=== PATIENT | female | born 1990 | race Caucasian/White ===

== ENCOUNTER 2016-04-30 13:23 | Emergency (ER) ==
[2016-04-30] MEDS ORDERED: DUONEB (A & A) INH ONE (13:53)
--- NOTE | 2016-04-30 13:57 | PROVIDER DOCUMENTATION ---
HPI-Respiratory General - General Chief Complaint: Cold Symptoms Stated Complaint: FLU SX Time Seen by Provider: 04/30/16 13:46 Source: patient Allergies/Adverse Reactions: Patient Allergies Allergy/AdvReac Type Severity Reaction Status Date / Time No Known Allergies Allergy Verified 04/30/16 13:48 Home Medications: Home Medication List Medication Instructions Recorded Confirmed Last Taken Type Amoxicillin [Amoxil] 875 mg PO BID #14 tablet 04/30/16 Unknown Rx Guaifenesin/Pseudoephedrne HCl 1 each PO BID #30 tab.er.12h 04/30/16 Unknown Rx [Mucinex D ER Tablet] - History of Present Illness-Resp Nature of Presenting Problem: 25 y/o F c/o cough, congestion, fever, sore throat x 1 week, worse in last 24 hours. Pt states cough is productive of yellow/green mucus. States fever as high as 103F at home. Denies influenza vaccine; states children sick with cough recently. Reports no abd. pain, N/V/C, but states 2 episodes of diarrhea today. Review of Systems - Adult - REVIEW OF SYSTEMS - ADULT Constitutional: reports: see HPI, fever. denies: chills Eyes: reports: no symptoms reported. denies: blurred vision, double vision Ears, Nose, Mouth & Throat: reports: see HPI, throat pain. denies: ear pain, nose pain Cardiovascular: reports: no symptoms reported. denies: chest pain, palpitations Respiratory: reports: see HPI, cough, wheezing. denies: dyspnea on exertion, shortness of breath Gastrointestinal: reports: see HPI, diarrhea. denies: abdominal pain, nausea, vomiting Genitourinary: reports: no symptoms reported. denies: dysuria, frequency Musculoskeletal: reports: muscle aches. denies: joint pain, joint swelling Integumentary: reports: no symptoms reported. denies: nail changes, rash Neurological: reports: no symptoms reported. denies: headache/migraines, numbness, paresthesia Psychiatric: reports: no symptoms reported Endocrine: reports: no symptoms reported. denies: cold intolerance, heat intolerance Hematologic/Lymphatic: reports: no symptoms reported. denies: easy bruising, prolonged bleeding Allergic/Immunologic: reports: no symptoms reported All Other Systems: Reviewed and Negative Past History - Adult - PAST MEDICAL HISTORY-ADULT Review of Records: reports: Nursing Assessment Review, Medications Reviewed Major Childhood Illnesses: reports: denies history Cardiovascular: reports: denies history Respiratory: reports: denies history Gastrointestinal: reports: denies history Obstetrical/Gynecological: reports: denies history Genitourinary: reports: denies history Musculoskeletal: reports: denies history Neurological: reports: denies history Endocrine/Immune: reports: denies history Other Conditions: reports: denies history - PRIOR SURGERIES/PROCEDURES Surgical/Procedure History: reports: BTL, , tonsillectomy - IMMUNIZATION STATUS Childhood Immunizations: See Nurse Assessment Flu Vaccine: See Nurse Assessment - FAMILY HISTORY Family History: reviewed, not pertinent - SOCIAL HISTORY Smoking: quit greater than 1 year Physical Exam-General - PHYSICAL EXAM-ADULT Initial Vital Signs Reviewed: Yes - CONSTITUTIONAL General Appearance: alert, mild distress, thin - EYES Eyes: pink conjunctivae - HEAD, EARS, NOSE, MOUTH & THROAT HENMT: normocephalic/atraumatic, moist mucous membranes, pharyngeal erythema. negative: tonsillar exudate - NECK Neck: supple, normal inspection. negative: lymphadenopathy - RESPIRATORY Respiratory: no respiratory distress, no accessory muscle use, rhonchi, wheezing . negative: crackles, rales - CARDIOVASCULAR Cardiovascular: regular rate, rhythm. negative: bradycardia, tachycardia - GASTROINTESTINAL (ABDOMEN) Abdominal Exam: normal bowel sounds, non tender, soft. negative: distended, guarding, rigid - LYMPHATIC Lymphatic: no adenopathy - MUSCULOSKELETAL Back Exam: normal inspection Extremity: normal gait - SKIN Integumentary: normal color, normal turgor, warm/dry - NEUROLOGIC Neurologic: negative: aphasia - PSYCHIATRIC Psych/Mental Status: normal mood/affect, normal thought content, normal thought process, oriented x 3 Progress - PLAN OF CARE/RESULTS Progress/Plan/Lab Results: Orders Category Date Time Status CHEST-2 VIEWS [RAD] Stat Exams 04/30/16 13:52 Draft Flu Swab [INFLUENZA SCREEN A/B] Stat Lab 04/30/16 13:30 Completed Albuterol 2.5MG/Ipratrop 0.5MG [Duoneb (A & A)] Med 04/30/16 13:53 Discontinued 6 ml INH NOW ONE Dexamethasone [Decadron] Med 04/30/16 14:48 Discontinued 10 mg IM NOW ONE Aerosol Treatments Routine Oth 04/30/16 13:53 Completed Aerosol Treatments Stat Oth 04/30/16 13:53 Completed Orders Category Date Time Status CHEST-2 VIEWS [RAD] Stat Exams 04/30/16 13:52 Draft Flu Swab [INFLUENZA SCREEN A/B] Stat Lab 04/30/16 13:30 Completed Albuterol 2.5MG/Ipratrop 0.5MG [Duoneb (A & A)] Med 04/30/16 13:53 Discontinued 6 ml INH NOW ONE Dexamethasone [Decadron] Med 04/30/16 14:48 Discontinued 10 mg IM NOW ONE Aerosol Treatments Routine Oth 04/30/16 13:53 Completed Aerosol Treatments Stat Oth 04/30/16 13:53 Completed Vital Signs Temp Pulse Resp BP Pulse Ox 04/30/16 15:05 80 18 130/78 100 04/30/16 14:06 78 14 95 04/30/16 13:29 97.7 F 82 18 139/84 100 No Known Allergies Allergy (Verified 04/30/16 13:48) Amoxicillin [Amoxil] 875 mg PO BID #14 tablet 04/30/16 Guaifenesin/Pseudoephedrne HCl [Mucinex D ER Tablet] 1 each PO BID #30 tab.er.12h 04/30/16 Discussed results and medication use with pt. - XRAY 1 XRAY Study: Chest XRAY Interpretation: No PNA Departure - Departure Time of Disposition Order: 14:47 DIAGNOSIS: URI (upper respiratory infection) Qualifiers: URI type: unspecified URI Qualified Code(s): J06.9 - Acute upper respiratory infection, unspecified Disposition: HOME 01 Certified Medical Emergency: Emergent Condition: Stable Additional Instructions: Take medications as directed. Follow up with PCP in 5-7 days for recheck. Tylenol/motrin for fever/body aches, as needed. ED Follow Up Instructions: You have been treated by a care provider in the Emergency Department. These instructions are being provided to you so you can have an understanding of how to care for yourself upon discharge. Upon discharge from the Emergency Department, you are responsible for making arrangements for follow-up care by a physician of your choice. Take all prescribed medications as directed. Return to the Emergency Department immediately for any new or worsening symptoms. You may call the Physician Referral phone number at [phone] to obtain a list of Physicians who are taking new patients. Prescriptions: Amoxicillin [Amoxil] 875 mg PO BID #14 tablet Guaifenesin/Pseudoephedrne HCl [Mucinex D ER Tablet] 1 each PO BID #30 tab.er.12h Referrals: Clemente Evans [Primary Care Provider] - Forms: Return to School/Parent Work Instructions: Upper Respiratory Infection, Adult, [id number] Attestation - Physician/ ALEX Attestation Patient care was provided by Advanced Practice Provider:: Yes Advanced Practice Provider:: Jessica Forman Advanced Practice Provider documentation review:: The Mid-level provider documentation, treatment plan and medical decision making was reviewed by the physician who agrees with all treatment and medical decision making by the MLP.
[2016-04-30] MEDS ORDERED: DECADRON IM ONE (14:48)
[2016-04-30 15:05] VITALS: BP 130/78
--- NOTE | 2016-04-30 15:15 | Diag Imaging Result Document ---
PROCEDURE NAME: CHEST-2 VIEWS - 04/30/2016 PA AND LATERAL RADIOGRAPH OF THE CHEST: COMPARISON: 05/29/2010. FINDINGS: The lungs are grossly clear. There is no discrete pleural fluid collection or evidence of pneumothorax. The cardiomediastinal silhouette and upper airway are grossly unremarkable. IMPRESSION: No evidence of acute chest pathology.
== END 2016-04-30 15:05 | disposition home or self-care (01) ==
LOC: ED 13:23
DX: J06.9 Acute upper respiratory infection, unspecified (principal); R05 Cough; R09.81 Nasal congestion; J02.9 Acute pharyngitis, unspecified; R06.2 Wheezing; R19.7 Diarrhea, unspecified; M79.1 Myalgia; Z87.891 Personal history of nicotine dependence
CPT/HCPCS: 71020; 87804; 94640